=== PATIENT | male | born 1985 | race Caucasian/White ===

== ENCOUNTER 2018-02-10 11:13 | Emergency (ER) | payer OTHER ==
[2018-02-10 12:05] VITALS: BP 150/82
--- NOTE | 2018-02-10 12:44 | UC ---
Complaint Male HPI - HPI Summary HPI Summary: 32 yo male presents with recent unprotected oral sex with a new partner 3 days ago. Afterward he became very anxious about HIV and went to the ER in [place] where he was for a business trip at this time. His partner said that he was clean and did NOT have HIV, but pt is worried that he could be lying to him. ED told him it was too early to draw labwork for HIV and discussed his options. Pt elected to take PEP. He is here today because the PEP is making him nauseous and he is wondering if he "really needs it". Denies fever, chills, myalgias. - History of Current Complaint Chief Complaint: UCGeneralIllness Stated Complaint: PERSONAL Time Seen by Provider: 02/10/18 12:44 Hx Obtained From: Patient Severity Currently: None Pain Intensity: 0 - Allergies/Home Medications Allergies/Adverse Reactions: Allergies Allergy/AdvReac Type Severity Reaction Status Date / Time cephalexin [From Keflex] Allergy See Comment Verified 02/10/18 12:06 ciprofloxacin Allergy See Comment Verified 02/10/18 12:06 codeine Allergy See Comment Verified 02/10/18 12:06 Home Medications: Home Medications Emtricitabine [Emtriva] 1 cap PO DAILY 02/10/18 [History Confirmed 02/10/18] Raltegravir* [Isentress*] 1 tab PO BID 02/10/18 [History Confirmed 02/10/18] Tenofovir TAB* [Viread*] 1 tab PO DAILY 02/10/18 [History Confirmed 02/10/18] PMH/Surg Hx/FS Hx/Imm Hx - Additional Past Medical History Additional PMH: None Previously Healthy: Yes - Surgical History Surgical History: Yes Surgery Procedure, Year, and Place: right knee scope; tonsils; wisdom teeth - Family History Known Family History: Positive: None - Social History Occupation: Employed Full-time Lives: With Family Alcohol Use: None Substance Use Type: None Smoking Status (MU): Never Smoked Tobacco - Immunization History Most Recent Influenza Vaccination: never Most Recent Tetanus Shot: UNK Review of Systems Constitutional: Negative Skin: Negative Respiratory: Negative Cardiovascular: Negative Gastrointestinal: Nausea Neurovascular: Negative Musculoskeletal: Negative Neurological: Negative Psychological: Negative All Other Systems Reviewed And Are Negative: Yes Physical Exam - Summary Physical Exam Summary: GENERAL: WDWN. No pain distress. Anxious SKIN: No rashes, sores, lesions, or open wounds. HEENT: Head: AT/NC Eyes: EOM intact. Conjunctiva clear without inflammation or discharge. Ears: Hearing grossly normal. TMs intact, no bulging, erythema, or edema. Nose: Nasal mucosa pink and moist. NTTP maxillary and frontal sinus. Throat: Posterior oropharynx without exudates, erythema, or tonsillar enlargement. Uvula midline. NECK: Supple. Nontender. No lymphadenopathy. CHEST: CTAB. No r/r/w. No accessory muscle use. Breathing comfortably and in no distress. CV: RRR. Without m/r/g. Pulses intact. Brisk cap refill. NEURO: Alert. CN II-XII grossly intact. PSYCH: Age appropriate behavior. Triage Information Reviewed: Yes Vital Signs: Initial Vital Signs Temp 98.7 F 02/10/18 12:00 Pulse 99 02/10/18 12:00 Resp 18 02/10/18 12:00 BP 150/82 02/10/18 12:00 Pulse Ox 100 02/10/18 12:00 Complaint Male Course/Dx - Course Course Of Treatment: I had a long discussion with the pt and all questions were answered. Oral sex is generally not an effective route of HIV transmission. Pt still felt unsure and wasn't sure if he should stop the PEP or not. I am unable to tell him that he has "no risk" and therefore he is going to "think about it" (stopping the PEP). I also will draw for HIV test today to get a baseline and refer him to Dr. Rondon should he have further questions. - Differential Dx/Diagnosis Provider Diagnoses: High risk sexual behavior unprotected Discharge - Sign-Out/Discharge Documenting (check all that apply): Discharge/Admit/Transfer - Discharge Plan Condition: Stable Disposition: HOME Patient Education Materials: HIV Transmission (ED), Postexposure Prophylaxis ( ED), HIV Infection (DC) Referrals: No Primary Care Phys,NOPCP [Primary Care Provider] - Nela SWAIN,Krishan Ryan [Medical Doctor] - If Needed Additional Instructions: If you develop a fever, shortness of breath, chest pain, new or worsening symptoms - please call your PCP or go to the ED. Your blood pressure was high at todays visit. Please see your primary provider within 4 weeks for recheck and re-evaluation. 1) Please call Dr. Rondon to schedule an appointment or ask any questions if needed. - Billing Disposition and Condition Condition: STABLE Disposition: Home
--- NOTE | 2018-02-12 07:27 | UC ---
- Progress Note Progress Note: Progress note: Patient seen here 2 days ago with concerns about HIV. Was tested. Test has come back nonreactive. Please call patient with result. Russell Best M.D. Discharge - Sign-Out/Discharge Documenting (check all that apply): Post-Discharge Follow Up - Discharge Plan Condition: Stable Disposition: HOME Patient Education Materials: HIV Transmission (ED), Postexposure Prophylaxis ( ED), HIV Infection (DC) Referrals: Nela SWAIN,Krishan Ryan [Medical Doctor] - If Needed No Primary Care Phys,NOPCP [Primary Care Provider] - Additional Instructions: If you develop a fever, shortness of breath, chest pain, new or worsening symptoms - please call your PCP or go to the ED. Your blood pressure was high at todays visit. Please see your primary provider within 4 weeks for recheck and re-evaluation. 1) Please call Dr. Rondon to schedule an appointment or ask any questions if needed. - Billing Disposition and Condition Condition: STABLE Disposition: Home
== END 2018-02-10 13:16 | disposition home or self-care (01) ==
LOC: UCEAST 11:13
DX: Z72.51 High risk heterosexual behavior (principal); Z11.4 Encounter for screening for human immunodeficiency virus [HIV]; Z88.1 Allergy status to other antibiotic agents; Z88.5 Allergy status to narcotic agent
CPT/HCPCS: 36415; 86703; 99211; G0463